=== PATIENT | female | born 1955 | race Asian ===

== ENCOUNTER 2018-01-30 16:54 | Emergency (ER) | payer OTHER ==
[~2018-01-30] VITALS: Ht 165.1 cm; Wt 69.4 kg
[2018-01-30 17:08] VITALS: BP_SYST 187
[2018-01-30] MEDS ORDERED: PROP50TA3 PO (17:10)
[2018-01-30] MEDS ORDERED: VALS1TAB80 PO (17:10)
[2018-01-30] MEDS ORDERED: CALC-939 PO (17:10)
[2018-01-30] MEDS ORDERED: PROP10TA10 PO (17:10)
[2018-01-30] MEDS ORDERED: MULT-1164 PO (17:10)
[2018-01-30] MEDS ORDERED: HYDR10SY11 PO (17:10)
[2018-01-30] MEDS ORDERED: LANS15CA14 PO (17:10)
[2018-01-30 18:31] VITALS: BP_SYST 158
== END 2018-01-30 18:30 | disposition home or self-care (01) ==
LOC: SED 16:54
DX: R13.10 Dysphagia, unspecified (principal); R03.0 Elevated blood-pressure reading, without diagnosis of hypertension; Z79.899 Other long term (current) drug therapy
CPT/HCPCS: 36415; 70360-TC; 84443-TC; 99284

== ENCOUNTER 2019-02-20 11:27 | Outpatient (CLI) | payer OTHER ==
[~2019-02-20 11:27] MED LIST: CALC-939 PO; HYDR10SY11 PO; LANS15CA14 PO; MULT-1164 PO; PROP10TA10 PO; PROP50TA3 PO; VALS1TAB80 PO
== END 2019-02-21 20:18 | disposition home or self-care (01) ==
LOC: SRD 11:27
PROVIDERS: ATTEND Family Medicine
DX: M47.896 Other spondylosis, lumbar region (principal); I70.0 Atherosclerosis of aorta; M16.12 Unilateral primary osteoarthritis, left hip; M76.9 Unspecified enthesopathy, lower limb, excluding foot
CPT/HCPCS: 72110; 73502